=== PATIENT | female | born 1965 | race Caucasian/White ===

== ENCOUNTER 2021-01-02 06:22 | Day surgery (SDC) | payer BC ==
[2020-12-29 13:14] VITALS: BMI 24.7
[2021-01-02] MEDS ORDERED: Clindamycin/D5W 900 mg/50 ml Premix Bag ONE (07:53)
[2021-01-02] MEDS ORDERED: Midazolam HCl 2 mg/2 ml Vial ONE (08:07)
[2021-01-02] MEDS ORDERED: Fentanyl 100 MCG/2 ML VIAL ONE ×2 (08:07→08:14)
[2021-01-02] MEDS ORDERED: Dexamethasone 20 MG/5 ML VIAL ONE (08:41)
[2021-01-02] MEDS ORDERED: Ropivacaine 2% HCl/PF (20 MG/10 ML VIAL) ONE (08:41)
[2021-01-02] MEDS ORDERED: Ropivacaine 0.5% HCl/PF (150 MG/30 ML VIAL) ONE (08:41)
[2021-01-02] MEDS ORDERED: Ondansetron PF 4 MG/2 ML Vial ONE (08:41)
[2021-01-02] MEDS ORDERED: Lidocaine 1% PF 5 ML VIAL ONE (08:41)
[2021-01-02] MEDS ORDERED: PHENYLEPHRINE-NS 100 MCG/ML 10 ML SYRINGE ONE (08:41)
[2021-01-02] MEDS ORDERED: PROPOFOL 200 MG/20 ML VIAL ONE (08:41)
[2021-01-02] MEDS ORDERED: Bacitracin Zinc Ointment 30 gm TUBE ONE (08:59)
[2021-01-02] MEDS ORDERED: Neomycin-Polymyxin 1 ML AMP ONE (08:59)
[2021-01-02] MEDS ORDERED: Albuterol Sulfate 1.25 MG/3 ML NEB ONE (11:03)
[2021-01-02] MEDS ORDERED: Ketorolac Tromethamine 30 MG/ML VIAL ONE (11:16)
== END 2021-01-02 12:25 | disposition home or self-care (01) ==
LOC: SDC 06:22
PROVIDERS: ATTEND Orthopaedic Surgery Hand Surgery
PROC: 0RGX04Z Fusion of Left Finger Phalangeal Joint with Internal Fixation Device, Open Approach (ICD-10-PCS; principal; 2021-01-02)
DX: M19.042 Primary osteoarthritis, left hand (principal); F17.210 Nicotine dependence, cigarettes, uncomplicated; E78.5 Hyperlipidemia, unspecified; J44.9 Chronic obstructive pulmonary disease, unspecified; Z79.899 Other long term (current) drug therapy; Z88.0 Allergy status to penicillin; Z88.1 Allergy status to other antibiotic agents
CPT/HCPCS: 76000; J1100; J1885; J2250; J2405; J2704; J2795; J3010; J3490

== ENCOUNTER 2021-08-30 15:49 | Outpatient (CLI) | payer BC | END 2021-08-30 15:50 | disposition home or self-care (01) | LOC: RAD 15:49 | PROVIDERS: ATTEND Family Medicine | DX: Z72.0 Tobacco use (principal) | CPT/HCPCS: 71046 ==

== ENCOUNTER 2024-08-23 09:00 | Outpatient (CLI) | payer BC ==
[2024-08-23] MEDS ORDERED: Iopamidol 370 76% 100 ML VIAL ONE (15:03)
== END 2024-08-23 09:01 | disposition home or self-care (01) ==
LOC: CT 09:00
PROVIDERS: ATTEND Internal Medicine Cardiovascular Disease
DX: R09.89 Other specified symptoms and signs involving the circulatory and respiratory systems (principal)
CPT/HCPCS: 36415; 70498; 82565; Q9967

== ENCOUNTER 2025-05-24 17:22 | Inpatient (IN) | payer BC ==
[~2025-05-24 17:22] MED LIST: Iopamidol-370 76% 500 ML MDV (1 ML CHARGE) ONE
[2025-05-24 19:00] LABS: #Basophils 0.04 10x3/uL (0.0-0.2); #Eosinophils 0.21 10x3/uL (0.0-0.7); #Monocytes 0.50 10x3/uL (0.11-0.59); #Neutrophils 5.71 10x3/uL (1.40-6.50); %Basophils 0.5 % (0.0-1.0); %Eosinophils 2.4 % (0.0-10.0); %Lymphocytes 25.8 % (21.0-51.0); %Monocytes 5.7 % (0.0-10.0); %Neutrophils 65.3 % (42.0-75.0); Hematocrit 44.3 % (36.0-47.0); Hemoglobin 14.8 g/dL (12.0-16.0); Mean Corpuscular Hemoglobin 29.0 pg (27.0-31.0); Mean Corpuscular Volume 86.7 fL (78.0-98.0); Platelet Count 214 10x3/uL (130-400); Red Blood Cell (RBC) Count 5.11 mill/uL (4.20-5.40); White Blood Cell (WBC) Count 8.75 10x3/uL (4.8-10.8)
[2025-05-24 19:13] LABS: Anion Gap 16 mmol/L (10-20); BUN (Urea Nitrogen) 11 mg/dL (9.8-20.1); Calc. Creatinine Clearance 0 mL/min (70-130); Calcium 9.4 mg/dL (7.8-10.44); Carbon Dioxide 23 mmol/L (23-31); Chloride 101 mmol/L (98-107); Glucose 193 mg/dL (80-115); Potassium 3.8 mmol/L (3.5-5.1); Sodium 136 mmol/L (136-145)
[2025-05-24] MEDS ORDERED: Acetaminophen 325 MG TAB PO PRN (20:17)
[2025-05-24] MEDS ORDERED: HYDROcodone/Acetaminophen 5/325 mg Tablet PO PRN (20:18)
[2025-05-24] MEDS ORDERED: Ondansetron PF 4 MG/2 ML Vial IVP PRN (20:18)
[2025-05-24] MEDS ORDERED: Nitroglycerin 0.4 MG TAB 1 EACH SL PRN (20:19)
[2025-05-24] MEDS ORDERED: Albuterol 2.5 MG (3 mL) NEB NEB PRN (20:20)
[2025-05-24] MEDS: Carvedilol 3.125 MG TAB PO SCH (21:00)
[2025-05-25] MEDS ORDERED: Clindamycin/D5W 900 MG in Premix 1 BAG IVPB SCH (11:00)
[2025-05-25] MEDS ORDERED: fentaNYL PF 100 MCG/2 ML SYRINGE ONE (11:53)
[2025-05-25] MEDS ORDERED: Heparin 5,000 UNITS/ML VIAL ONE (11:59)
[2025-05-25] MEDS ORDERED: Lidocaine 1% PF 5 ML VIAL ONE (12:16)
[2025-05-25] MEDS ORDERED: PROPOFOL 200 MG/20 ML VIAL ONE (12:16)
[2025-05-25] MEDS ORDERED: Glycopyrrolate 0.2 MG/ML 5 ML SYRINGE ONE (12:27)
[2025-05-25] MEDS ORDERED: PHENYLEPHRINE-NS 100 MCG/ML 10 ML SYRINGE ONE ×2 (12:27→13:48)
[2025-05-25] MEDS ORDERED: Heparin 10,000 UNITS/ 10 ML VIAL ONE (12:28)
[2025-05-25] MEDS ORDERED: Ondansetron PF 4 MG/2 ML Vial ONE (12:33)
[2025-05-25] MEDS ORDERED: SUGAMMADEX SODIUM 200 MG/2 ML VIAL ONE (13:19)
[2025-05-25] MEDS: Clindamycin/D5W 900 MG in Premix 1 BAG IVPB SCH (19:42)
[2025-05-26] MEDS: HYDROcodone/Acetaminophen 5/325 mg Tablet PO PRN (04:34)
[2025-05-26 05:01] VITALS: BP 122/72; TEMP 97.7
[2025-05-26] MEDS: Aspirin 81 mg Enteric Coated Tablet PO SCH (10:14)
== END 2025-05-26 11:00 | disposition home or self-care (01) | DRG 254 ==
LOC: OBS 17:22 → SURG B 05-25 17:36
PROVIDERS: ADMIT Family Medicine; ATTEND Family Medicine
PROC: 3E03329 Introduction of Other Anti-infective into Peripheral Vein, Percutaneous Approach (ICD-10-PCS; 2025-05-25)
PROC: 04CK0ZZ Extirpation of Matter from Right Femoral Artery, Open Approach (ICD-10-PCS; principal; 2025-05-26)
PROC: 04UK0KZ Supplement Right Femoral Artery with Nonautologous Tissue Substitute, Open Approach (ICD-10-PCS; 2025-05-26)
DX: I70.213 Atherosclerosis of native arteries of extremities with intermittent claudication, bilateral legs (principal); I25.10 Atherosclerotic heart disease of native coronary artery without angina pectoris; R07.9 Chest pain, unspecified; I65.23 Occlusion and stenosis of bilateral carotid arteries; F12.10 Cannabis abuse, uncomplicated; E78.5 Hyperlipidemia, unspecified; J44.9 Chronic obstructive pulmonary disease, unspecified; F17.210 Nicotine dependence, cigarettes, uncomplicated; I10 Essential (primary) hypertension; Z95.5 Presence of coronary angioplasty implant and graft; Z79.899 Other long term (current) drug therapy; Z79.02 Long term (current) use of antithrombotics/antiplatelets; Z79.82 Long term (current) use of aspirin; Z79.51 Long term (current) use of inhaled steroids; Z98.890 Other specified postprocedural states
CPT/HCPCS: 36415; 75635; 80048; 85025; 86850; 86900; 86901; C1768; J0169; J1100; J1644; J2250; J2405; J2704; J2720; J3010; J3490; Q9967